=== PATIENT | female | born 1960 | race Caucasian/White ===

== ENCOUNTER 2024-10-08 01:44 | Inpatient (IN) | payer BC, OTHER ==
--- NOTE | 2024-10-08 05:38 | RAD REPORT ---
EXAM: XR Chest, 1 View CLINICAL HISTORY: The patient is 64 years old and is Female; vomiting TECHNIQUE: Frontal view of the chest. COMPARISON: No relevant prior studies available. FINDINGS: Lungs: Unremarkable. No consolidation. Pleural space: Unremarkable. No pneumothorax. Heart: Unremarkable. Mediastinum: Unremarkable. Normal mediastinal contour. Bones/joints: No acute findings. IMPRESSION: No acute findings in the chest. Electronically signed by: Yassine Steele MD 10/08/2024 05:24 AM CDT RP 8 Due to temporary technical issues with the PACS/Nusocket reporting system, reports are being tu d by the in-house radiologist without review as a courtesy to ensure prompt reporting the interpreting radiologist is fully responsible for the content of the report. Transcribed Date/Time: 10/08/2024 5:38 AM
[2024-10-08] MEDS ORDERED: DIPHENHYDRAMINE 50 MG/ML VIAL ONE (05:47)
[2024-10-08] MEDS ORDERED: METOCLOPRAMIDE 10 MG/2mL INJ ONE (05:48)
[2024-10-08] MEDS ORDERED: FAMOTIDINE 20 MG/2 ML VIAL IV ONE (05:48)
[2024-10-08] MEDS ORDERED: NA CHLORIDE 0.9% 1,000 ML ONE ×2 (05:48→07:23)
[2024-10-08 05:52] LABS: Absolute Basophils 0.1 K/uL (0-0.5); Absolute Lymphocytes (CBC) 1.3 K/uL (0.7-4.9); Absolute Monocytes 0.6 K/uL (0.1-1.3); Absolute Neutrophil 11.7 K/uL (1.8-8.0); Hematocrit 39.9 % (36.0-45.0); Hemoglobin 13.9 g/dL (12.0-15.0); Lymphocytes % 9.4 % (15.3-44.8); MCH 30.3 pg (27.0-35.0); MCHC 34.8 g/dL (32.0-36.0); MCV 87.1 fL (80-100); MPV 7.3 fL (7.6-11.3); Monocytes % 4.2 % (3.3-12.3); Neutrophils % 85.4 % (41.7-73.7); Nucleated Red Blood Cells % 0.1 % (0-0); Platelets 421 thou/uL (152-406); RBC Red Blood Cell Count 4.58 M/uL (3.86-4.86); Red Cell Distribution Width 12.7 % (12.1-15.2)
[2024-10-08 05:55] LABS: PT Prothrombin Time 13.6 SECONDS (10-13.0); PTT, Activated Partial Thromb 31.7 SECONDS (27.2-37.4); Protime INR 1.2
[2024-10-08 06:09] LABS: Albumin 3.9 g/dL (3.4-5.0); Albumin/Globulin Ratio 0.7 (1.1-1.8); Anion Gap 11.1 mEq/L (5.0-15.0); Bilirubin Direct 0.2 mg/dL (0-0.2); Bilirubin Indirect, Calculated 0.5 mg/dL (0.2-0.8); Bilirubin Total 0.7 mg/dL (0.2-1.0); Globulin 5.3 g/dL (2.3-3.5); Magnesium 2.2 mg/dL (1.6-2.4); Potassium 3.1 mEq/L (3.5-5.1); Protein, Total 9.2 g/dL (6.4-8.2); Troponin High Sensitivity 3.6 pg/mL (<58.9)
--- NOTE | 2024-10-08 06:53 | RAD REPORT ---
EXAMINATION: Abdomen Pelvis Wo Contrast CLINICAL INDICATION: Female, 64 years old.mid and upper abdomen pain TECHNIQUE: CT abdomen and pelvis was performed, without IV contrast, as per department protocol. Axia l, sagittal and coronal reconstructions were obtained. One or more of the following dose reduction techniques were used: Automated exposure control, adjustment of the mA and/or kV according to the pat ient size, and/or iterative reconstruction. Unless otherwise specified, incidental findings do not require dedicated imaging follow-up. [id number]. IV CONTRAST: Not administered. COMPARISON: None FINDINGS: The lack of intravenous contrast limits the sensitivity of this exam for evaluation of solid visceral organs, vascular structures, and retroperitoneum. LOWER CHEST: No acute process identified.No significant pericardial effusion. UPPER GI: No significant abnormality. LIVER: Hepatic steatosis, but otherwise unremarkable. GALLBLADDER/BILE DUCTS: Cholecystectomy. Moderate extrahepatic biliary ductal dilatation. This could be secondary to the post-cholecystectomy state. Recommend correlation with LFT's. If abnormal, consider MRCP for further evaluation. ? PANCREAS: No mass, ductal dilation, or charlie-pancreatic fluid. SPLEEN: Unremarkable. ADRENALS: No adrenal masses. KIDNEYS AND URETERS: No hydronephrosis.Limited evaluation for renal lesions in the absence of IV cont rast.No renal calculi. ABDOMINAL AORTA AND OTHER VESSELS: Normal caliber aorta and IVC. PERITONEUM: No abnormal free fluid. No free air. LYMPH NODES: No pathologic lymphadenopathy. ABDOMINAL WALL: Moderate narrow neck periumbilical hernia containing colon with colonic obstruction. The neck measures approximately 3.6 cm. The hernia measures approximately 9.4 x 10 x 7.8 cm SMALL BOWEL/COLON: Dilated colon with pericolonic inflammatory changes involving the colon, particula rly the mid transverse colon where there is an obstruction secondary to a periumbilical hernia.The colon within the hernia is distended and has an air-fluid level. As noted, there is stranding present around the transverse colon with mesenteric edema. No pneumatosis. URINARY BLADDER: Underdistended but grossly unremarkable. REPRODUCTIVE ORGANS: No pathologic process. MUSCULOSKELETAL: No acute or suspicious osseous abnormality. ADDITIONAL FINDINGS: None. IMPRESSION: Transverse colon containing, narrow neck, periumbilical hernia with bowel obstruction. If not reducib le, surgical consultation is advised. THIS REPORT CONTAINS FINDINGS THAT MAY BE CRITICAL TO PATIENT CARE. The emergent findings were commun icated to Dr. Lety Coto on 10/08/2024 6:49 AM.
--- NOTE | 2024-10-08 07:01 | ER ---
Nurse's Notes [facility] Name: Yessenia Sanders Age: 64 yrs Sex: Female : 1960 Arrival Date: 10/08/2024 Time: 01:44 Bed 24 Private MD: Diagnosis: Abdominal tenderness;Vomiting;Umbilical hernia with obstruction, without gangrene;Hypokalemia;Hypo-osmolality and hyponatremia;Obesity, unspecified Presentation: 10/08 02:35 Chief complaint: Patient states: c/o of abdominal pain, nausea and vomiting x 4 days. cg Has a history of pancreatitis. Coronavirus screen: Vaccine status: Patient reports being unvaccinated. Ebola Screen: Patient negative for fever greater than or equal to 101.5 degrees Fahrenheit, and additional compatible Ebola Virus Disease symptoms. Initial Sepsis Screen: Does the patient meet any 2 criteria? No. Patient's initial sepsis screen is negative. Risk Assessment: Do you want to hurt yourself or someone else? Patient reports no desire to harm self or others. 02:35 Method Of Arrival: Wheelchair cg 02:35 Acuity: JOSE F 3 cg 07:00 Initial Sepsis Screen: Does the patient have a suspected source of infection? No. kc6 Patient's initial sepsis screen is negative. Onset of symptoms was October 08, 2024. Historical: - Allergies: 06:11 Benadryl; jj7 08:17 Demerol; kc6 08:17 Morphine; kc6 08:17 Aspirin; kc6 08:17 Tylenol-Codeine #3; kc6 08:17 Fentanyl; kc6 08:17 Dilaudid; kc6 - PMHx: 06:11 Pancreatitis; jj7 - PSHx: 05:50 Cholecystectomy; jj7 - Immunization history:: Adult Immunizations up to date, Client reports having NOT received the Covid vaccine. - Infectious Disease History:: Denies. - Social history:: Smoking status: Patient denies any tobacco usage or history of. Patient uses alcohol, but reports only rare drinking. Patient/guardian denies using street drugs. Screenin:50 [facility] ED Fall Risk Assessment (Adult) History of falling in the last 3 months, jj7 including since admission No falls in past 3 months (0 pts) Confusion or Disorientation No (0 pts) Intoxicated or Sedated No (0 pts) Impaired Gait No (0 pts) Mobility Assist Device Used No (0 pt) Altered Elimination No (0 pt) Score/Fall Risk Level 0 - 2 = Low Risk Oriented to surroundings, Maintained a safe environment, Educated pt \T\ family on fall prevention, incl call for assistance when getting out of bed, Assessed \T\ reinforced patient's understanding of fall precautions. Abuse screen: Denies threats or abuse. Nutritional screening: No deficits noted. Tuberculosis screening: No symptoms or risk factors identified. Assessment: 05:44 Reassessment: ASSUMED CARE OF PT. PT SITTING IN BED. NO DISTRESS NOTED. VS STABLE. jj7 FAMILY AT BEDSIDE. CALL WING IN REACH. General: Appears in no apparent distress. uncomfortable, Behavior is calm, cooperative, appropriate for age. Pain: Complains of pain in abdomen. GI: Abdomen is round Reports lower abdominal pain, upper abdominal pain, epigastric pain, nausea. 07:00 General: Appears in no apparent distress. comfortable, well groomed, well developed, kc6 Behavior is calm, cooperative, appropriate for age. Pain: Complains of pain in epigastric area and umbilical area. Neuro: Level of Consciousness is awake, alert, obeys commands, Oriented to person, place, time, situation, Appropriate for age. Cardiovascular: Capillary refill < 3 seconds. Respiratory: Airway is patent Trachea midline Respiratory effort is even, unlabored, Respiratory pattern is regular, symmetrical. GI: Abdomen is round non-distended, Bowel sounds present X 4 quads. Reports lower abdominal pain, upper abdominal pain, epigastric pain, nausea, vomiting, Patient currently denies diarrhea. : No signs and/or symptoms were reported regarding the genitourinary system. EENT: No signs and/or symptoms were reported regarding the EENT system. Derm: No signs and/or symptoms reported regarding the dermatologic system. Skin is intact, is healthy with good turgor, Skin is pink, warm \T\ dry. Musculoskeletal: No signs and/or symptoms reported regarding the musculoskeletal system. Circulation, motion, and sensation intact. Range of motion: intact in all extremities. 07:30 Reassessment: pt requesting pain medication. pt reports multiple medicine allergies. pt kc6 states Stadol, Vicodin, or [place] typically work for her. pt educated that she is NPO due to potential bowel obstruction. pt verbalizes understanding and requesting transfer to [facility] in [place] but will wait for the hospitalist to speak with her regarding POC. 08:00 Reassessment: KALPANA Baez at bedside speaking with pt and family regarding POC. kc 08:05 Reassessment: Patient appears in no apparent distress at this time. No changes from kc6 previously documented assessment. Patient and/or family updated on plan of care and expected duration. Pain level reassessed. Patient is alert, oriented x 3, equal unlabored respirations, skin warm/dry/pink. 09:39 Reassessment: Patient appears in no apparent distress at this time. No changes from kc6 previously documented assessment. Patient and/or family updated on plan of care and expected duration. Pain level reassessed. Patient is alert, oriented x 3, equal unlabored respirations, skin warm/dry/pink. Patient states symptoms have not improved. Vital Signs: 02:35 BP 158 / 95; Pulse 102; Resp 20; Temp 97.9; Pulse Ox 99% ; Weight 72.57 kg; Height 5 cg ft. 8 in. ; Pain 10/10; 05:50 BP 214 / 106; Pulse 99; Resp 20; Pulse Ox 99% ; jj7 06:20 BP 176 / 66; Pulse 97; Resp 19; Pulse Ox 100% ; jj7 07:56 BP 162 / 87; Pulse 97; Resp 17 S; Pulse Ox 97% on R/A; kc6 09:39 BP 149 / 78; Pulse 89; Resp 18 S; Pulse Ox 95% on R/A; kc6 02:35 Body Mass Index 24.33 (72.57 kg, 172.72 cm) cg 02:35 Pain Scale: Adult cg ED Course: 01:48 Patient arrived in ED. gm2 01:59 Jair Coto PA is PHCP. cp 01:59 Jair Rodriguez MD is Attending Physician. cp 02:39 Triage completed. cg 03:20 XRAY Chest (1 view) In Process Unspecified. EDMS 05:50 Patient has correct armband on for positive identification. Bed in low position. Call jj7 light in reach. Side rails up X 1. Adult w/ patient. Provided Education on: USE OF CALLL WING. Warm blanket given. 05:50 Inserted saline lock: 20 gauge in right antecubital area, using aseptic technique. jj7 Blood collected. Flushed with 10 mL NS. 06:06 Theresa Zapata RN is Primary Nurse. jj7 06:40 Abdomen In Process Unspecified. EDMS 06:58 Iker Romeo MD is Hospitalizing Provider. [facility] 07:00 Report received from ANTHONY TORRES. kc6 07:00 Patient has correct armband on for positive identification. Bed in low position. Call kc light in reach. Side rails up X2. Adult w/ patient. death clearance coordinator on. Pulse ox on. NIBP on. Door closed. Noise minimized. Lights dimmed. Warm blanket given. Pillow given. Verbal reassurance given. 07:00 Arm band placed on. kc6 07:30 Patient requests pain medication. [facility] 09:39 No provider procedures requiring assistance completed. Patient admitted, IV remains in kc place. Administered Medications: 05:50 Drug: NS 0.9% IV 1000 ml IV at 1000 ml once; to be given as a bolus over 60 minutes j Route: IV; Rate: 1000 ml; Site: right antecubital; 09:38 Follow up: Response: No adverse reaction; IV Status: Completed infusion; IV Intake: kc6 1000ml 05:50 Drug: metoCLOPramide IVP 10 mg IVP once; over 1 to 2 minutes Route: IVP; Site: right [facility] antecubital; 07:42 Follow up: Response: No adverse reaction [facility] 05:50 Drug: Famotidine IVP 20 mg IVP once; dilute with 10 mL 0.9% NaCl; give over 2 minutes j Route: IVP; Site: right antecubital; 07:43 Follow up: Response: No adverse reaction kc6 06:09 Not Given (Patient Refused; STATES SHE IS ALLERGIC): [id number] mg IVP once jj7 06:55 CANCELLED (Duplicate Order): piperacillin-tazobactam3.375 grams IVPB once over 60 mins; [facility] (mix in NS 100 mL) 07:43 Drug: NS 0.9% IV 1000 ml IV at 1000 ml once; to be given as a bolus over 60 minutes kc Route: IV; Rate: 1000 ml; Site: right antecubital; 09:38 Follow up: Response: No adverse reaction; IV Status: Completed infusion; IV Intake: kc6 1000ml 07:43 Drug: Ciprofloxacin IVPB 400 mg 200 ml IVPB once over 60 mins Volume: 200 ml; Route: kc6 IVPB; Infused Over: 60 mins; Site: right antecubital; 08:38 Follow up: Response: No adverse reaction; IV Status: Completed infusion; IV Intake: kc6 200ml 07:43 Not Given (allergy): hydromorphone0.5 mg IVP once kc6 07:43 Drug: Ondansetron IVP 4 mg IVP once; over 2 minutes Route: IVP; Site: right antecubital;kc6 08:39 Follow up: Response: No adverse reaction kc6 08:17 Drug: metroNIDAZOLE IVPB 500 mg 100 ml IVPB at 200 ml/hr once over 30 mins Volume: 100 kc6 ml; Route: IVPB; Rate: 200 ml/hr; Infused Over: 30 mins; Site: right antecubital; 09:38 Follow up: Response: No adverse reaction; IV Status: Completed infusion; IV Intake: kc6 100ml 09:50 Drug: NS 0.9% with KCl IV 20 mEq/L 1000 ml IV at 125 ml/hr continuous Route: IV; Rate: kc6 125 ml/hr; Site: right antecubital; 09:50 Drug: Potassium Chloride IV 20 mEq IV at calculated rate once; administer over 1-2 kc6 hours Route: IV; Rate: calculated rate; Site: right antecubital; Medication: 09:40 VIS not applicable for this client. kc6 Intake: 08:38 IV: 200ml; Total: 200ml. kc6 09:38 IV: 1000ml; Total: 1200ml. kc6 09:38 IV: 1000ml; Total: 2200ml. kc6 09:38 IV: 100ml; Total: 2300ml. kc6 Outcome: 07:00 Decision to Hospitalize by Provider. dago 09:39 Admitted to ER Hold. Please see [facility] for further documentation. kc6 09:39 Condition: good 09:39 Instructed on the need for admit, 10:09 Patient left the ED. kc6 Signatures: Dispatcher [employer] EDJair Childress MD MD cha Page, Corey, PA PA cp Garcia, Cindy, RN RN cg Campbell, Kaitlyn, RN RN kc6 Johnson, Juwairiyah, RN RN jj7 Rodriguez, Coco gm2
--- NOTE | 2024-10-08 07:01 | EDPHYS ---
Physician Documentation [facility] Name: Yessenia Sanders Age: 64 yrs Sex: Female : 1960 Arrival Date: 10/08/2024 Time: 01:44 Bed 24 Private MD: ED Physician Jair Rodriguez HPI: 10/08 02:45 This 64 yrs old Female presents to ER via Wheelchair with complaints of cp Nausea/Vomiting, Abdominal Pain. 02:45 The patient presents to the emergency department with nausea, with "dry heaves", cp vomiting, that is continuous, described as bilious, abdominal pain, of the mid and upper abdomen, described as constant, and does not radiate. Onset: The symptoms/episode began/occurred 4 day(s) ago. Possible causes: flare up of bowel problem, pancreatitis. Associated signs and symptoms: Pertinent negatives: constipation, diarrhea, fever, GI bleeding, chest pain. Severity of symptoms: in the emergency department the symptoms are unchanged despite home interventions. Historical: - Allergies: 06:11 Benadryl; jj7 08:17 Demerol; kc6 08:17 Morphine; kc6 08:17 Aspirin; kc6 08:17 Tylenol-Codeine #3; kc6 08:17 Fentanyl; kc6 08:17 Dilaudid; kc6 - PMHx: 06:11 Pancreatitis; jj7 - PSHx: 05:50 Cholecystectomy; jj7 - Immunization history:: Adult Immunizations up to date, Client reports having NOT received the Covid vaccine. - Infectious Disease History:: Denies. - Social history:: Smoking status: Patient denies any tobacco usage or history of. Patient uses alcohol, but reports only rare drinking. Patient/guardian denies using street drugs. ROS: 02:50 Constitutional: Positive for poor PO intake, Negative for body aches, chills, fever, cp 02:50 Eyes: Negative for injury, pain, redness, and discharge, cp 02:50 Cardiovascular: Negative for chest pain, edema, palpitations, 02:50 Respiratory: Negative for cough, shortness of breath, wheezing, 02:50 Abdomen/GI: Positive for abdominal pain, nausea and vomiting, anorexia, Negative for hematemesis, 02:50 Back: Negative for radiated pain, Exam: 02:55 Constitutional: The patient appears in no acute distress, alert, awake, cp non-diaphoretic, non-toxic, well developed, well nourished, uncomfortable, 02:55 Head/Face: Normocephalic, atraumatic. cp 02:55 Eyes: Periorbital structures: appear normal, Conjunctiva: normal, no exudate, no injection, Sclera: no appreciated abnormality, Lids and lashes: appear normal, bilaterally, 02:55 ENT: External ear(s): are unremarkable, Nose: is normal, Mouth: Lips: moist, Oral mucosa: moist, Posterior pharynx: Airway: no evidence of obstruction, patent, erythema, is not appreciated, exudate, is not appreciated, 02:55 Neck: ROM/movement: is normal, is supple, without pain, no range of motions limitations, no meningismus, 02:55 Chest/axilla: Inspection: normal, 02:55 Cardiovascular: Rate: tachycardic, Edema: is not appreciated, JVD: is not appreciated, 02:55 Respiratory: the patient does not display signs of respiratory distress, Respirations: normal, no use of accessory muscles, no retractions, labored breathing, is not present, Breath sounds: decreased breath sounds, are not appreciated, stridor, is not appreciated, wheezing: is not appreciated, 02:55 Abdomen/GI: Inspection: obese Bowel sounds: active, all quadrants, Palpation: soft, in all quadrants, severe abdominal tenderness, in the epigastric area, right upper quadrant and left upper quadrant, rebound tenderness, is not appreciated, involuntary guarding, is not appreciated, Hernia: noted in the umbilical area, incarceration, is not appreciated, tenderness, that is mild, 02:55 Back: CVA tenderness, is absent, 02:55 Neuro: Orientation: to person, place \\T\\ time. Mentation: is normal, Vital Signs: 02:35 BP 158 / 95; Pulse 102; Resp 20; Temp 97.9; Pulse Ox 99% ; Weight 72.57 kg; Height 5 cg ft. 8 in. ; Pain 10/10; 05:50 BP 214 / 106; Pulse 99; Resp 20; Pulse Ox 99% ; jj7 06:20 BP 176 / 66; Pulse 97; Resp 19; Pulse Ox 100% ; jj7 07:56 BP 162 / 87; Pulse 97; Resp 17 S; Pulse Ox 97% on R/A; kc6 09:39 BP 149 / 78; Pulse 89; Resp 18 S; Pulse Ox 95% on R/A; kc6 02:35 Body Mass Index 24.33 (72.57 kg, 172.72 cm) cg 02:35 Pain Scale: Adult cg MDM: 02:44 Medical Screening Exam initiated dago 05:01 Medical Screening Exam initiated dago 10/08 02:44 Order name: Basic Metabolic Panel; Complete Time: 06:11 cp 10/08 02:44 Order name: CBC with Diff; Complete Time: 07:58 cp 10/08 06:07 Interpretation: Normal except: WBC 13.80; PLT 421; MPV 7.3; EVELYN% 85.4; LYM% 9.4; NEUT A cp 11.7. 10/08 02:44 Order name: LFT's; Complete Time: 06:11 cp 10/08 02:44 Order name: Magnesium; Complete Time: 06:11 cp 10/08 02:44 Order name: NT PRO-BNP; Complete Time: 06:11 cp 10/08 02:44 Order name: PT-INR; Complete Time: 06:07 cp 10/08 02:44 Order name: Troponin HS; Complete Time: 06:11 cp 10/08 02:44 Order name: Lipase; Complete Time: 06:11 cp 10/08 02:44 Order name: Ptt, Activated; Complete Time: 06:07 cp 10/08 06:08 Order name: CBC Smear Scan; Complete Time: 07:58 EDMS 10/08 08:30 Order name: CBC with Automated Diff EDMS 10/08 08:30 Order name: CBC with Automated Diff EDMS 10/08 08:30 Order name: CBC with Automated Diff EDMS 10/08 08:30 Order name: CBC with Automated Diff EDMS 10/08 08:30 Order name: CBC with Automated Diff EDMS 10/08 08:30 Order name: Comprehensive Metabolic Panel EDMS 10/08 08:30 Order name: Comprehensive Metabolic Panel EDMS 10/08 08:30 Order name: Comprehensive Metabolic Panel EDMS 10/08 08:30 Order name: Comprehensive Metabolic Panel EDMS 10/08 08:30 Order name: Comprehensive Metabolic Panel EDMS 10/08 02:44 Order name: XRAY Chest (1 view); Complete Time: 06:33 cp 10/08 06:40 Order name: Abdomen ; Complete Time: 06:55 EDMS 10/08 02:44 Order name: Cardiac monitoring; Complete Time: 07:20 cp 10/08 02:44 Order name: EKG - Nurse/Tech; Complete Time: 07:20 cp 10/08 02:44 Order name: IV Saline Lock; Complete Time: 06:10 cp 10/08 02:44 Order name: Labs collected and sent; Complete Time: 06:10 cp 10/08 02:44 Order name: O2 Per Protocol; Complete Time: 06:10 cp 10/08 02:44 Order name: O2 Sat Monitoring; Complete Time: 06:10 cp Administered Medications: 05:50 Drug: NS 0.9% IV 1000 ml IV at 1000 ml once; to be given as a bolus over 60 minutes jj7 Route: IV; Rate: 1000 ml; Site: right antecubital; 09:38 Follow up: Response: No adverse reaction; IV Status: Completed infusion; IV Intake: kc6 1000ml 05:50 Drug: metoCLOPramide IVP 10 mg IVP once; over 1 to 2 minutes Route: IVP; Site: right j7 antecubital; 07:42 Follow up: Response: No adverse reaction [facility] 05:50 Drug: Famotidine IVP 20 mg IVP once; dilute with 10 mL 0.9% NaCl; give over 2 minutes jj7 Route: IVP; Site: right antecubital; 07:43 Follow up: Response: No adverse reaction [facility] 06:09 Not Given (Patient Refused; STATES SHE IS ALLERGIC): kpalyehbfzvekcw99 mg IVP once j7 06:55 CANCELLED (Duplicate Order): piperacillin-tazobactam3.375 grams IVPB once over 60 mins; dago (mix in NS 100 mL) 07:43 Drug: NS 0.9% IV 1000 ml IV at 1000 ml once; to be given as a bolus over 60 minutes kc6 Route: IV; Rate: 1000 ml; Site: right antecubital; 09:38 Follow up: Response: No adverse reaction; IV Status: Completed infusion; IV Intake: kc6 1000ml 07:43 Drug: Ciprofloxacin IVPB 400 mg 200 ml IVPB once over 60 mins Volume: 200 ml; Route: kc6 IVPB; Infused Over: 60 mins; Site: right antecubital; 08:38 Follow up: Response: No adverse reaction; IV Status: Completed infusion; IV Intake: kc6 200ml 07:43 Not Given (allergy): hydromorphone0.5 mg IVP once kc6 07:43 Drug: Ondansetron IVP 4 mg IVP once; over 2 minutes Route: IVP; Site: right antecubital;kc6 08:39 Follow up: Response: No adverse reaction kc6 08:17 Drug: metroNIDAZOLE IVPB 500 mg 100 ml IVPB at 200 ml/hr once over 30 mins Volume: 100 kc6 ml; Route: IVPB; Rate: 200 ml/hr; Infused Over: 30 mins; Site: right antecubital; 09:38 Follow up: Response: No adverse reaction; IV Status: Completed infusion; IV Intake: kc6 100ml 09:50 Drug: NS 0.9% with KCl IV 20 mEq/L 1000 ml IV at 125 ml/hr continuous Route: IV; Rate: kc6 125 ml/hr; Site: right antecubital; 09:50 Drug: Potassium Chloride IV 20 mEq IV at calculated rate once; administer over 1-2 kc6 hours Route: IV; Rate: calculated rate; Site: right antecubital; Disposition: 10/09 08:08 Co-signature as Attending Physician, Jair Rodriguez MD I agree with the assessment and dago plan of care. Disposition Summary: 10/08/24 07:00 Hospitalization Ordered Notes: Hospitalization Status: Inpatient Admission dago Provider: Iker Romeo cha Location: Telemetry/[facility] (Inpatient) dago Condition: Fair dago Problem: new dago Symptoms: have improved dago Bed/Room Type: Standard dago Room Assignment: dago Diagnosis - Abdominal tenderness dago - Vomiting dago - Umbilical hernia with obstruction, without gangrene dago - Hypokalemia dago - Hypo-osmolality and hyponatremia dago - Obesity, unspecified dago Forms: - Medication Reconciliation Form dago - SBAR form dago - Leadership Thank You Letter dago Signatures: Dispatcher [employer] Jair Nguyen MD MD cha Attema, Lee, [employer] Jair Coto PA PA cp Rosillo, Jose, MD MD [id number] Jina Hernández RN RN kc6 Theresa Zapata RN RN jj7 Corrections: (The following items were deleted from the chart) 10/08 02:45 02:45 BASIC METABOLIC PANEL+C.LAB.BRZ ordered. EDMS EDMS 02:45 02:45 CBC+H.LAB.BRZ ordered. EDMS EDMS 02:45 02:45 HEPATIC FUNCTION+C.LAB.BRZ ordered. EDMS EDMS 02:45 02:45 MAGNESIUM+C.LAB.BRZ ordered. EDMS EDMS 02:45 02:45 PROBNP+C.LAB.BRZ ordered. EDMS EDMS 02:45 02:45 PROTIME (+INR)+COAG.LAB.BRZ ordered. EDMS EDMS 02:45 02:45 Troponin High Sensitivity+C.LAB.BRZ ordered. EDMS EDMS 02:45 02:45 LIPASE+C.LAB.BRZ ordered. EDMS EDMS 02:45 02:45 PTT, ACTIVATED+COAG.LAB.BRZ ordered. EDMS EDMS 02:45 02:45 Chest Single View+RAD.RAD.BRZ ordered. EDMS EDMS 06:40 04:07 Abdomen Pelvis W Con+CT.RAD.BRZ ordered. EDMS EDMS 06:55 06:52 Piperacillin-Tazobactam IVPB 3.375 grams IVPB once over 60 mins; (mix in NS 100 dago mL) ordered. dago
[2024-10-08] MEDS ORDERED: ONDANSETRON 4 MG/2 ML VIAL ONE ×2 (07:23→10:16)
[2024-10-08] MEDS ORDERED: MORPHINE 4 MG/ML SYR ONE (07:23)
[2024-10-08] MEDS ORDERED: KCL 20 MEQ/100 mL IVPB 0 ML IV ONE (07:23)
[2024-10-08] MEDS ORDERED: METRONIDAZOLE 500mg IVPB 500 MG/100 ML BAG IV ONE (07:24)
[2024-10-08] MEDS ORDERED: CIPROFLOXACIN 400mg IV 400 MG/200 ML BAG IV ONE (07:24)
[2024-10-08] MEDS ORDERED: NS KCL 20MEQ 1,000 ML IV ONE (07:25)
[2024-10-08 07:31] LABS: Blood Morphology Comment NOT SEEN (NOT SEEN); Platelet Estimate ADEQ; White Blood Cell Scan OK (OK)
[2024-10-08] MEDS ORDERED: MORPHINE 2 MG/ML SYR IV PRN (08:26)
[2024-10-08] MEDS ORDERED: KCL 20 MEQ/100 mL IVPB 100 ML IV ONE (08:54)
[2024-10-08] MEDS: D5 0.9 NS 1,000 ML IV SCH (09:00)
[2024-10-08] MEDS ORDERED: ROCURONIUM 50 MG/5 ML VIAL IV ONE ×2 (10:16→11:53)
[2024-10-08] MEDS ORDERED: NEOSTIGMINE 1 MG/ML -10 ML VIAL ONE (10:16)
[2024-10-08] MEDS ORDERED: LIDOCAINE 2% MPF 5 ML VIAL ONE (10:16)
[2024-10-08] MEDS ORDERED: GLYCOPYRROLATE 0.2 MG/ML SYR ONE (10:16)
[2024-10-08] MEDS ORDERED: propofoL 200 MG/20 ML VIAL IV ONE (10:16)
[2024-10-08] MEDS ORDERED: FENTANYL CITR 100 MCG/2 ML ONE (10:16)
[2024-10-08] MEDS ORDERED: MIDAZOLAM HCL 2 MG/2 ML INJ ONE (10:22)
[2024-10-08] MEDS: Ringers Lactate 1,000 ML IV ONE (10:23)
--- NOTE | 2024-10-08 10:34 | PREOPCON ---
Date of Consultation: 10/08/2024 Reason: Incarcerated umbilical hernia. History Of Present Illness: The patient is a 64-year-old female who presents with approximately 4-da y history of nausea, vomiting, and diffuse abdominal pain. The patient states that she has not had a bowel movement for 5 days and she has not passed any gas. She denies any sore throat, runny nose, c ough, headaches. She does have some dizziness, but no chest pain. No fever or chills. No dysuria o r hematuria. Review of systems otherwise unremarkable. The patient had seen me several years ago an d was diagnosed with umbilical hernia. She was supposed to get surgery; however, her and the surgery was canceled, and so, she never had any intervention done. Past Medical History: Significant for gallstone pancreatitis. Past Surgical History: Significant for open cholecystectomy. Allergies: MULTIPLE AND REVIEWED INCLUDING BENADRYL AMONG OTHERS. SHE IS VERY SENSITIVE TO PAIN MED ICATIONS AND THAT WILL BE ADDRESSED WITH ANESTHESIA WELL THE HOSPITALIST TEAM PRIOR TO ADMINIST RATION OF ANY SUCH MEDICINE. Social History: She does not smoke or drink alcohol, except for on rare occasions. Family History: Noncontributory. Physical Examination: Vital Signs: Stable. She is afebrile. General: She is awake, alert, oriented x3. Head and Neck: Cranial nerves 2 through 12 grossly within normal limits. No neck masses. No JVD. Throat clear. Neck is supple. Chest: Clear. Heart: S1, S2. Abdomen: Soft. Slight distention. Hypoactive bowel sounds. In the umbilicus, she has an incarcera pretty hernia with a large mass and the skin is slightly red, but is not tense. Extremities: Adequately perfused, nontender. Neuro: Nonfocal. Diagnostic Data: White count is 13.8 with a left shift, platelets are 421. INR is 1.20. Electrolyt es reviewed. Sodium is 129; potassium is 3.1, which is being replaced; glucose is 189. CT of the ab domen and pelvis reviewed. Essentially, the impression is transverse colon containing narrow neck, p eriumbilical hernia with bowel obstruction. Assessment: Incarcerated possible strangulating umbilical hernia. Recommendation: Admit, n.p.o., IV fluid, IV antibiotics. Replace electrolytes and to the OR for lap aroscopic assisted repair of incarcerated, possible strangulated umbilical hernia. The patient under stands risks, benefits, and alternatives and agrees to procedure. /MODL Voice ID: [id number] Report ID: [id number]
[2024-10-08] MEDS: SCOPOLAMINE HYDROBROMIDE PATCH TD ONE ×2 (10:35)
[2024-10-08] MEDS: HYDROMORPHONE HCL 2 MG/ML inj ONE (10:54)
[2024-10-08] MEDS: CEFOXITIN SODIUM 1 GM/VIAL ONE (11:00)
[2024-10-08] MEDS: BUPIVACAINE 0.5% PF 10 ML VIAL ONE (11:26)
[2024-10-08] MEDS: HYDROMORPHONE HCL 1 MG/ML INJ ONE (12:50)
[2024-10-08] MEDS: KETOROLAC 30 MG/ML INJ ONE (13:09)
--- NOTE | 2024-10-08 13:15 | P.OP ---
Date of Service: 10/08/24 Preop diagnosis: Incarcerated possible strangulated umbilical hernia Postop diagnosis: Incarcerated umbilical hernia Procedure performed: Laparoscopic assisted repair of incarcerated umbilical hernia Surgeon: Michael Gerber MD Internet Designer: Daniella CASTREJON Estimated blood loss: Minimal Specimen: Hernia sac Findings: As above, with incarcerated transverse colon which was healthy and reduced back into the peritoneal cavity Anesthesia: General Complications: None Drains: None Fluids and blood products: Nonapplicable Disposition: Recovery room Operative note: Patient brought to the OR and placed in the supine position. General anesthesia began. Patient prepped and draped in usual sterile fashion. Marcaine 0.5% very locally. 15 blade used to make a 1 cm left upper quadrant incision. Subcutaneous tissue divided and bleeding controlled cautery. Fascia identified and divided. #1 Vicryl stay suture placed. Peritoneal cavity entered with sharp and blunt dissection. 12 mm trocar placed into the peritoneal cavity under direct vision. Pneumoperitoneum established. An a 5 mm trocar placed in the left lower quadrant under direct vision. Laparoscopy revealed incarcerated omentum and transverse colon. Attempted reduction laparoscopically were unsuccessful. Therefore approximately a 4 cm incision was made over the hernia below the umbilicus. Subcutaneous tissue divided. Hernia sac identified and dissected free from the surrounding tissue. Hernia sac excised at the fascial edges. The hernia sac opened slightly to allow for reduction of the omentum and transverse colon back into the peritoneal cavity. The colon itself was healthy. Subsequently a primary closure of the fascia was done with #2 nylon. Pneumoperitoneum was reestablished. A large Bard balloon system mesh was deployed and secured with absorbable tackers in the standard fashion. Complete coverage of the hernia sac was accomplished with at least 3 cm borders in every direction. The umbilical wound was irrigated and bleeding controlled cautery. All trocars removed under direct vision. Stay sutures tied to each other to reapproximate the fascial defect. Subcutaneous wound irrigated and bleeding controlled with cautery. 3-0 chromic used to approximate subcutaneous tissue and close skin. Sterile dressing applied. Patient awakened and taken to recovery room in good general condition. CC:
[2024-10-08] MEDS ORDERED: HYDROMORPHONE HCL 1 MG/ML INJ IV PRN (13:39)
[2024-10-08 14:35] VITALS: BMI 24.3
[2024-10-08] MEDS: NA CHLORIDE 0.9% 1,000 ML IV SCH (14:40)
[2024-10-08] MEDS: METRONIDAZOLE 500mg IVPB 500 MG/100 ML BAG IV SCH (14:40)
[2024-10-08] MEDS: HYDROCODONE/APAP 10/325 TAB PO PRN (14:40)
--- NOTE | 2024-10-08 16:59 | P.HP ---
Certification for Inpatient Patient admitted to: Inpatient With expected LOS: >2 Midnights Patient will require the following post-hospital care: None Practitioner: I am a practitioner with admitting privileges, knowledge of patient current condition, hospital course, and medical plan of care. Services: Services provided to patient in accordance with Admission requirements found in Title 42 Section 412.3 of the Code of Federal Regulations <Nestor Valenzuela - Last Filed: 10/08/24 16:56> Patient History Date of Service: 10/08/24 History of Present Illness: 64-year-old female with history of GERD, pancreatitis presents the emergency department chief complaint of abdominal pain and vomiting. She reports that the symptoms have been ongoing for around 4 days now. She was evaluated in the emergency department her labs were significant for a white blood cell count of 13.8 sodium 129 potassium 3.1 [address] of the abdomen and pelvis with IV contrast was performed which revealed transverse colon containing narrow neck periumbilical hernia with bowel obstruction. General surgery was consulted, plans for likely operative ma nagement. Patient be admitted for further evaluation and management. - Past Medical/Surgical History Has patient received pneumonia vaccine in the past: No Diabetic: No -: pancreatitis -: GERD -: lap dm Psychosocial/ Personal History: Lives at home with family - Social History Smoking Status: Never smoker Alcohol use: Yes CD- Drugs: No Caffeine use: Yes Place of Residence: Home <Nestor Valenzuela - Last Filed: 10/08/24 16:56> Date of Service: 10/08/24 <Iker Romeo - Last Filed: 10/09/24 12:23> Allergies metronidazole [From Flagyl] Allergy (Intermediate, Verified 10/08/24 19:48) Rash diphenhydramine [From Benadryl] Allergy (Verified 10/08/24 08:58) UNK aspirin Adverse Reaction (Verified 10/08/24 12:58) Nausea/Vomiting codeine [From Tylenol-Codeine] Adverse Reaction (Verified 10/08/24 12:58) Nausea/Vomiting fentanyl Adverse Reaction (Verified 10/08/24 12:58) Nausea/Vomiting meperidine [From Demerol] Adverse Reaction (Verified 10/08/24 12:58) Nausea/Vomiting morphine Adverse Reaction (Verified 10/08/24 12:58) Nausea/Vomiting Home Medications: Famotidine 10 mg PO TID 10/08/24 Hydrocodone Bit/Acetaminophen [[place] 10-325 Tablet] 1 each PO TID PRN 10/08/24 Zolpidem Tartrate [Ambien] 10 mg PO BEDTIME 10/08/24 Hydrocodone 10/APAP 325 [[place] 10/325*] 1 tab PO Q6HP PRN #30 tab 10/09/24 Review of Systems 10-point ROS is otherwise unremarkable Gastrointestinal: Nausea, Vomiting, Abdominal Pain <Nestor Valenzuela - Last Filed: 10/08/24 16:56> Physical Examination - Vital Signs Temperature: 99.6 F Blood Pressure: 145/75 Pulse: 85 Respirations: 16 Pulse Ox (%): 98 - Physical Exam General: Alert, In no apparent distress, Oriented x3 HEENT: Atraumatic, PERRLA, EOMI Neck: Supple, 2+ carotid pulse no bruit, No LAD Respiratory: Clear to auscultation bilaterally, Normal air movement Cardiovascular: Regular rate/rhythm, Normal S1 S2 Gastrointestinal: Normal bowel sounds, Tenderness (Moderate generalized abdominal tenderness) Musculoskeletal: No tenderness Neurological: Normal gait, Normal speech, Normal strength at 5/5 x4 extr, Normal tone, Normal affect Lymphatics: No axilla or inguinal lymphadenopathy - Studies Laboratory Data (last 24 hrs) 10/08/24 10/08/24 10/08/24 05:31 05:31 05:31 WBC 13.80 H Hgb 13.9 Hct 39.9 Plt Count 421 H PT 13.6 H INR 1.20 APTT 31.7 Sodium 129 L Potassium 3.1 L BUN 12 Creatinine 0.62 Glucose 189 H Magnesium 2.2 Total Bilirubin 0.7 AST 31 ALT 47 Alkaline Phosphatase 79 Lipase 15 <Nestor Valenzuela - Last Filed: 10/08/24 16:56> Assessment and Plan - Plan Assessment: Incarcerated umbilical hernia status post laparoscopic assisted repair 10/08 Hyponatremia Hypokalemia GERD Pancreatitis Plan: Incarcerated umbilical hernia status post laparoscopic assisted repair 10/08 Per surgery repeat CBC in the morning Continue antibiotics Cipro/Flagyl As needed pain medications and antiemetics Hyponatremia Hypokalemia Continue IV hydration overnight with electrolyte protocols in place GERD Pancreatitis Continue home medications, lipase normal DVT PPX: SCD Code status: Full Discharge Plan: Home Plan to discharge in: 48 Hours - Advance Directives Does patient have a Living Will: No Does patient have a Durable POA for Healthcare: No - Code Status/Comfort Care Code Status Assessed: Yes (Full code) Critical Care: No Time Spent Managing Pts Care (In Minutes): 68 <Nestor Valenzuela - Last Filed: 10/08/24 16:56> Date of Service: 10/08/24 Patient was seen and examined. Events of the last 24 hours have been noted. Spoke with with MIRYAM regarding patient's clinical picture after evaluating and examining the patient independently. I performed a substantial part of the MDM during this patient's care today. I personally made or approved the documented management plan and acknowledge its risk of complications. I agree with the findings and documentation provided in the MIRYAM's notes. Patient taken to the OR by general surgery. Patient scheduled for surgery for strangulated hernia repair. <Iker Romeo - Last Filed: 10/09/24 12:23>
[2024-10-08] MEDS: CIPROFLOXACIN 400mg IV 400 MG/200 ML BAG IV SCH (20:33)
[2024-10-08] MEDS: ONDANSETRON 4 MG/2 ML VIAL IV PRN (21:28)
[2024-10-09] MEDS: HYDROCODONE/APAP 10/325 TAB PO PRN (00:54)
[2024-10-09] MEDS ORDERED: METRONIDAZOLE 500mg IVPB 500 MG/100 ML BAG IV SCH (01:00)
[2024-10-09 06:53] LABS: Absolute Basophils 0.1 K/uL (0-0.5); Absolute Lymphocytes (CBC) 1.5 K/uL (0.7-4.9); Absolute Neutrophil 6.6 K/uL (1.8-8.0); Basophils % 0.7 % (0-1.3); Eosinophils % 0.4 % (0-4.4); Hemoglobin 10.9 g/dL (12.0-15.0); Lymphocytes % 16.2 % (15.3-44.8); MCH 30.9 pg (27.0-35.0); MCHC 35.2 g/dL (32.0-36.0); MCV 87.6 fL (80-100); MPV 7.6 fL (7.6-11.3); Monocytes % 10.5 % (3.3-12.3); Neutrophils % 72.2 % (41.7-73.7); Nucleated Red Blood Cells % 0.1 % (0-0); Platelets 281 thou/uL (152-406); RBC Red Blood Cell Count 3.53 M/uL (3.86-4.86); Red Cell Distribution Width 12.9 % (12.1-15.2)
[2024-10-09 06:57] LABS: Albumin 3.1 g/dL (3.4-5.0); Albumin/Globulin Ratio 0.9 (1.1-1.8); Anion Gap 8.3 mEq/L (5.0-15.0); Bilirubin Total 0.8 mg/dL (0.2-1.0); Globulin 3.6 g/dL (2.3-3.5); Potassium 3.3 mEq/L (3.5-5.1); Protein, Total 6.7 g/dL (6.4-8.2)
[2024-10-09 08:34] VITALS: O2SAT 92
[2024-10-09] MEDS: POTASSIUM CL SA 10 MEQ TAB PO ONE (12:09)
[2024-10-09 12:15] VITALS: BP 131/70; TEMP 98
--- NOTE | 2024-10-09 12:18 | P.DS ---
Admission Date: 10/08/24 Discharge Date: 10/09/24 Brief History of Present Illness: 64-year-old female with history of GERD, pancreatitis presents the emergency department chief complaint of abdominal pain and vomiting. She reports that the symptoms have been ongoing for around 4 days now. She was evaluated in the emergency department her labs were significant for a white blood cell count of 13.8 sodium 129 potassium 3.1 chloride [address] of the abdomen and pelvis with IV contrast was performed which revealed transverse colon containing narrow neck periumbilical hernia with bowel obstruction. General surgery was consulted, plans for likely operative management. Patient be admitted for further evaluation and management. Hospital Course: Assessment: Incarcerated umbilical hernia status post laparoscopic assisted repair 10/08 Hyponatremia Hypokalemia GERD Pancreatitis Patient was admitted for an incarcerated umbilical hernia, she underwent laparoscopic assisted repair on 10/08 and has done well postoperatively. She is tolerating a diet, passing gas and feeling better. She is stable for discharge and outpatient follow-up with general surgery in 1 week. Remove outer dressing in a.m. and shower Keep Steri-Strips on at all times Incentive spirometry as instructed Abdominal binder as instructed Resume home meds and diet Follow-up my office in 1 week, call for appointment Pain medicine per the hospitalist team <Nsetor Valenzuela - Last Filed: 10/09/24 12:17> Admission Date: 10/08/24 Discharge Date: 10/09/24 Hospital Course: Patient was seen and examined. Events of the last 24 hours have been noted. Spoke with with MIRYAM regarding patient's clinical picture after evaluating and examining the patient independently. I performed a substantial part of the MDM during this patient's care today. I personally made or approved the documented management plan and acknowledge its risk of complications. I agree with the findings and documentation provided in the MIRYAM's notes. Patient is clinically doing well. At this time patient is stable for discharge and will follow-up with general surgery as an outpatient. They did not recommend oral antibiotics either. Patient is recommended pain control and outpatient follow-up. <Iker Romeo - Last Filed: 10/09/24 12:24> Disposition: ROUTINE DISCHARGE Discharge Condition: GOOD Vital Signs/Physical Exam: Temp Pulse Resp BP Pulse Ox 98.0 F 95 H 16 131/70 97 10/09/24 12:00 10/09/24 12:00 10/09/24 12:08 10/09/24 12:00 10/09/24 12:08 General: Alert, In no apparent distress, Oriented x3 HEENT: Atraumatic, PERRLA Neck: Supple, JVD not distended Respiratory: Clear to auscultation bilaterally, Normal air movement Cardiovascular: Regular rate/rhythm, Normal S1 S2 Gastrointestinal: Normal bowel sounds, No tenderness Musculoskeletal: No tenderness Integumentary: No rashes Neurological: Normal speech, Normal affect Laboratory Data at Discharge: WBC 9.10 thou/uL (4.3-10.9) 10/09/24 06:17 Hgb 10.9 g/dL (12.0-15.0) L D 10/09/24 06:17 Hct 31.0 % (36.0-45.0) L 10/09/24 06:17 Plt Count 281 thou/uL (152-406) D 10/09/24 06:17 PT 13.6 SECONDS (10-13.0) H 10/08/24 05:31 INR 1.20 10/08/24 05:31 APTT 31.7 SECONDS (27.2-37.4) 10/08/24 05:31 Sodium 132 mEq/L (136-145) L 10/09/24 06:17 Potassium 3.3 mEq/L (3.5-5.1) L 10/09/24 06:17 BUN 7 mg/dL (7-18) 10/09/24 06:17 Creatinine 0.53 mg/dL (0.55-1.02) L 10/09/24 06:17 Glucose 162 mg/dL (74-106) H 10/09/24 06:17 Magnesium 2.2 mg/dL (1.6-2.4) 10/08/24 05:31 Total Bilirubin 0.8 mg/dL (0.2-1.0) 10/09/24 06:17 AST 29 U/L (15-37) 10/09/24 06:17 ALT 46 U/L (13-56) 10/09/24 06:17 Alkaline Phosphatase 59 U/L (45-117) D 10/09/24 06:17 Lipase 15 U/L (13-75) 10/08/24 05:31 <Nestor Valenzuela - Last Filed: 10/09/24 12:17> Vital Signs/Physical Exam: Temp Pulse Resp BP Pulse Ox 98.0 F 95 H 16 131/70 97 10/09/24 12:00 10/09/24 12:00 10/09/24 12:08 10/09/24 12:00 10/09/24 12:08 Laboratory Data at Discharge: WBC 9.10 thou/uL (4.3-10.9) 10/09/24 06:17 Hgb 10.9 g/dL (12.0-15.0) L D 10/09/24 06:17 Hct 31.0 % (36.0-45.0) L 10/09/24 06:17 Plt Count 281 thou/uL (152-406) D 10/09/24 06:17 PT 13.6 SECONDS (10-13.0) H 10/08/24 05:31 INR 1.20 10/08/24 05:31 APTT 31.7 SECONDS (27.2-37.4) 10/08/24 05:31 Sodium 132 mEq/L (136-145) L 10/09/24 06:17 Potassium 3.3 mEq/L (3.5-5.1) L 10/09/24 06:17 BUN 7 mg/dL (7-18) 10/09/24 06:17 Creatinine 0.53 mg/dL (0.55-1.02) L 10/09/24 06:17 Glucose 162 mg/dL (74-106) H 10/09/24 06:17 Magnesium 2.2 mg/dL (1.6-2.4) 10/08/24 05:31 Total Bilirubin 0.8 mg/dL (0.2-1.0) 10/09/24 06:17 AST 29 U/L (15-37) 10/09/24 06:17 ALT 46 U/L (13-56) 10/09/24 06:17 Alkaline Phosphatase 59 U/L (45-117) D 10/09/24 06:17 Lipase 15 U/L (13-75) 10/08/24 05:31 <Iker Romeo - Last Filed: 10/09/24 12:24> Diet: Regular Activity: No lifting more than 10 lbs Time spent managing pt's care (in minutes): 42 <Nestor Valenzuela Sharon Carter - Last Filed: 10/09/24 12:17> Time spent managing pt's care (in minutes): 45 <Iker Romeo - Last Filed: 10/09/24 12:24> Home Medications: Famotidine 10 mg PO TID 10/08/24 Hydrocodone Bit/Acetaminophen [[place] 10-325 Tablet] 1 each PO TID PRN 10/08/24 Zolpidem Tartrate [Ambien] 10 mg PO BEDTIME 10/08/24 Hydrocodone 10/APAP 325 [[place] 10/325*] 1 tab PO Q6HP PRN #30 tab 10/09/24 New Medications: Hydrocodone 10/APAP 325 [[place] 10/325*] 1 tab PO Q6HP PRN #30 tab PRN Reason: Pain Scale 5-7 (Moderate) Physician Discharge Instructions: Remove outer dressing in a.m. and shower Keep Steri-Strips on at all times Incentive spirometry as instructed Abdominal binder as instructed Resume home meds and diet Follow-up my office in 1 week, call for appointment Pain medicine per the hospitalist team -DC IV and DC home -Follow-up with PCP in 1 to 2 weeks -Follow-up with General Surgery, Dr. Gerber, in 1 to 2 weeks -Please call Dr. Romeo at [phone] if any questions regarding hospital stay -Please call nursing station at [phone] if any nursing or medication questions -Return to the emergency room if symptoms worsen Followup: NONE,NONE [Primary Care Provider] - Michael Gerber MD [ACTIVE - CAN ADMIT] - 1 Week
--- NOTE | 2024-10-09 23:14 | PN ---
Date of Progress Note: 10/09/2024 Subjective: The patient is awake, alert, tolerating diet well. Objective: Vital Signs: Stable, afebrile. Abdomen: Benign. Dressing is clean, dry, and intact. Laboratory Data: Reviewed. White count is normal. There is no left shift. Electrolytes reviewed and being replaced. Assessment: Status post laparoscopic-assisted repair of incarcerated umbilical hernia. Recommendation: From a surgical standpoint, the patient can be discharged home with the electrolytes supplement have been given. The patient to follow up with me in my office in a week. Detail of dis charge instructions given to the patient and discharge plan discussed with the hospitalist. /MODL Voice ID: [id number] Report ID: [id number]
--- NOTE | 2024-10-13 12:56 | EKG ---
Test Date: 2024-10-08 Test Time: 07:26:10 Hack Saw Operator: AM MEASUREMENT RESULTS: Intervals: Rate: 100 VA: 166 QRSD: 94 QT: 350 QTc: 451 [place]: P: 42 VA: 166 QRS: 0 T: 66 INTERPRETIVE STATEMENTS: Normal sinus rhythm Inferior infarct, age undetermined Possible Anterior infarct, age undetermined Abnormal ECG Compared to ECG 12/14/2008 14:25:27 Myocardial infarct finding now present Electronically Signed On 10-13-24 12:43:44 CDT by Jose Osborn
== END 2024-10-09 14:31 | disposition home or self-care (01) | DRG 354 ==
LOC: ER 01:44 → ERHOLD 08:26 → 2ND 12:02
PROVIDERS: ADMIT Hospitalist; ATTEND Hospitalist
PROC: 0WQF4ZZ Repair Abdominal Wall, Percutaneous Endoscopic Approach (ICD-10-PCS; principal; 2024-10-08 09:30)
DX: K42.0 Umbilical hernia with obstruction, without gangrene (principal); E87.1 Hypo-osmolality and hyponatremia; K86.1 Other chronic pancreatitis; E87.6 Hypokalemia; E66.9 Obesity, unspecified; K21.9 Gastro-esophageal reflux disease without esophagitis; Z88.6 Allergy status to analgesic agent; Z88.5 Allergy status to narcotic agent; Z68.24 Body mass index [BMI] 24.0-24.9, adult; Z88.8 Allergy status to other drugs, medicaments and biological substances; Z90.49 Acquired absence of other specified parts of digestive tract; Z28.310 Unvaccinated for COVID-19; Z79.899 Other long term (current) drug therapy
CPT/HCPCS: 36415; 71045; 74176; 80048; 80053; 80076; 83690; 83735; 83880; 84484; 85025; 85610; 85730; 88302; 93005; 94010; 96361; 96365; 96375; 99285; J0694; J0744; J1171; J1200; J2003; J2250; J2405; J2704; J2710; J2765; J3010; J3480; J7030; J7120